=== PATIENT | female | born 1965 | race Caucasian/White ===

== ENCOUNTER → 2016-08-08 | Outpatient (CLI) | payer OTHER ==
[~2016-08-08] MED LIST: BUPR-79 PO; CGN5X PO; CHLO1TAB19 PO; DIPH50CA31 PO; DTRSR/10 PO; HYDR25TA4 PO; MELO15TA4 PO; OXCA300T PO; PRLSR20 PO; TOPI100T45 PO; ZCR40 PO
== END | disposition home or self-care (01) ==
LOC: C.PATHSPEC 17:49
PROVIDERS: ATTEND Nurse Practitioner
DX: L82.1 Other seborrheic keratosis (principal)

== ENCOUNTER → 2016-09-27 | Outpatient (CLI) | payer OTHER ==
[2016-09-27 12:13] LABS: BASO % 0.5 %; BASO ABS # 0.03 K/uL (0-0.2); COMPLETE YES; EOS % 1.1 %; HEMATOCRIT 39.5 % (37-47); IG% 0.2 %; LYMPH % 36.1 %; LYMPH ABS # 1.97 K/uL (1.2-3.4); MEAN CELL VOLUME 86.8 fL (80-100); MEAN CORPUSCULAR HEMOGLOBIN 29.7 pg (25-34); MEAN CORPUSCULAR HGB CONC 34.2 g/dl (32-36); MEAN PLATELET VOLUME 10.1 fL (7.4-10.4); MONO % 7.3 %; NEUT % 54.8 %; PLATELET COUNT 265 K/uL (130-400); RED BLOOD COUNT 4.55 M/uL (4.2-5.4); WHITE BLOOD COUNT 5.46 K/uL (4.8-10.8)
[2016-09-27 12:22] LABS: ALT/SGPT 24 U/L (12-78); BLOOD UREA NITROGEN 17 mg/dl (7-18); BUN/CREATININE RATIO 22.4 (10-20); CALCIUM 9.1 mg/dl (8.5-10.1); CARBON DIOXIDE 24 mmol/L (21-32); CHLORIDE 109 mmol/L (98-107); CHOLESTEROL 179 mg/dl (0-200); CREATININE 0.75 mg/dl (0.60-1.20); GLUCOSE 93 mg/dl (70-99); POTASSIUM 3.6 mmol/L (3.5-5.1); SODIUM 144 mmol/L (136-145)
[2016-09-27 12:33] LABS: ALB/GLOB RATIO 1.1 (0.9-2); ALKALINE PHOSPHATASE 97 U/L (45-117); AST/SGOT 16 U/L (15-37); HDL CHOLESTEROL 45 mg/dl; LDL CHOLESTEROL CALCULATED 84 mg/dl; TRIGLYCERIDES 248 mg/dl (0-150); VERY LOW DENSITY LIPOPROT CALC 50 mg/dl
[2016-09-27 13:22] LABS: ESTIMATED AVERAGE GLUCOSE 108 mg/dl; HA1C FLAG Normal (Normal)
== END | disposition home or self-care (01) ==
LOC: C.LABBFT 10:27
PROVIDERS: ATTEND Psychiatry & Neurology Geriatric Psychiatry
DX: E53.8 Deficiency of other specified B group vitamins (principal); E07.9 Disorder of thyroid, unspecified; E55.9 Vitamin D deficiency, unspecified; E78.00 Pure hypercholesterolemia, unspecified; R73.01 Impaired fasting glucose; Z79.899 Other long term (current) drug therapy

== ENCOUNTER → 2016-12-11 | Outpatient (CLI) | payer OTHER ==
[~2016-12-11] MED LIST changes: +BENZ0.5T2 PO; -CGN5X PO
--- NOTE | 2016-12-11 16:01 | DIAGNOSTIC IMAGING REPORT ---
PA CHEST RADIOGRAPH AND UPRIGHT AND SUPINE AP RADIOGRAPHS OF THE ABDOMEN CLINICAL HISTORY: Constipation. Abdominal cramping. COMPARISON STUDY: No previous studies for comparison. FINDINGS: Lung volumes are normal. A calcified left lower lobe nodule is noted. Cardiac size is normal. Mediastinal contours are normal. There is no evidence of pulmonary edema. There is no free air. There are suspected bilateral renal calculi. A left renal calculus measures 1 cm. Pelvic calcifications are indeterminate. Bowel gas pattern is normal. There is a [id number] amount of stool within the colon. There is minimal stool within the rectum. IMPRESSION: 1. No free air or evidence of bowel obstruction. 2. Mild to moderate amount of stool within the colon. 3. Suspected bilateral nephrolithiasis. Multiple indeterminate pelvic calcifications statistically reflect phleboliths although distal ureteral calculi could appear similar. 4. No acute cardiopulmonary findings. Electronically signed by: Silvestre Latham M.D. 12/11/2016 4:00 PM Dictated Date/Time: 12/11/2016 3:56 PM
== END | disposition home or self-care (01) ==
LOC: C.RAD1850 15:22
PROVIDERS: ATTEND Nurse Practitioner
DX: R10.31 Right lower quadrant pain (principal); R10.32 Left lower quadrant pain; N28.89 Other specified disorders of kidney and ureter

== ENCOUNTER → 2016-12-11 | Outpatient (CLI) | payer OTHER ==
[2016-12-11 17:39] LABS: BASO % 0.2 %; BASO ABS # 0.01 K/uL (0-0.2); COMPLETE YES; EOS % 1.6 %; HEMATOCRIT 39.5 % (37-47); IG% 0.3 %; LYMPH % 32.8 %; LYMPH ABS # 2.02 K/uL (1.2-3.4); MEAN CELL VOLUME 86.8 fL (80-100); MEAN CORPUSCULAR HEMOGLOBIN 29.9 pg (25-34); MEAN CORPUSCULAR HGB CONC 34.4 g/dl (32-36); MEAN PLATELET VOLUME 9.9 fL (7.4-10.4); NEUT % 57.1 %; PLATELET COUNT 271 K/uL (130-400); RED BLOOD COUNT 4.55 M/uL (4.2-5.4); WHITE BLOOD COUNT 6.16 K/uL (4.8-10.8)
[2016-12-11 17:54] LABS: BLOOD UREA NITROGEN 22 mg/dl (7-18); BUN/CREATININE RATIO 28.9 (10-20); CALCIUM 9.1 mg/dl (8.5-10.1); CARBON DIOXIDE 28 mmol/L (21-32); CHLORIDE 109 mmol/L (98-107); CREATININE 0.76 mg/dl (0.60-1.20); GLUCOSE 92 mg/dl (70-99); POTASSIUM 3.1 mmol/L (3.5-5.1); SODIUM 144 mmol/L (136-145)
== END | disposition home or self-care (01) ==
LOC: C.LABBFT 09:47
PROVIDERS: ATTEND Nurse Practitioner
DX: R10.31 Right lower quadrant pain (principal); R10.32 Left lower quadrant pain

== ENCOUNTER → 2016-12-13 | Outpatient (CLI) | payer OTHER ==
--- NOTE | 2016-12-13 10:42 | DIAGNOSTIC IMAGING REPORT ---
ABDOMINAL ULTRASOUND, RIGHT UPPER QUADRANT HISTORY: Abdominal cramping. Right upper quadrant pain.. COMPARISON: None. FINDINGS: Pancreas: The pancreas demonstrates a normal echotexture. Liver: The liver is echogenic consistent with fatty change. Gallbladder: No gallbladder wall thickening. No gallstones. CBD: 6 mm. Right kidney: There appears to be a right extra renal pelvis. There are few small stones measuring up to 5 mm. No definite hydronephrosis. IMPRESSION: 1. Hepatic steatosis. 2. Normal gallbladder, no gallstones. 3. Right-sided nephrolithiasis. No definite hydronephrosis Electronically signed by: Los Pathak M.D. 12/13/2016 10:41 AM Dictated Date/Time: 12/13/2016 10:39 AM
== END | disposition home or self-care (01) ==
LOC: C.ULTR 09:57
PROVIDERS: ATTEND Nurse Practitioner
DX: R10.31 Right lower quadrant pain (principal); R10.32 Left lower quadrant pain; K76.0 Fatty (change of) liver, not elsewhere classified; N20.0 Calculus of kidney

== ENCOUNTER → 2016-12-18 | Outpatient (CLI) | payer OTHER ==
--- NOTE | 2016-12-18 10:30 | DIAGNOSTIC IMAGING REPORT ---
ABDOMEN AND PELVIS CT WITHOUT CONTRAST CT DOSE: 557.63 mGy.cm HISTORY: N20.0 Kidney [id number] TECHNIQUE: Multiaxial CT images of the abdomen and pelvis were performed without contrast. COMPARISON STUDY: Abdominal ultrasound 12/13/2016. FINDINGS: There are few punctate calcified granulomas within the lung bases. No pneumoperitoneum. No pneumatosis. A 6 mm nodule within the right inferior breast on image 3. The unenhanced liver, gallbladder, pancreas, and adrenal glands are unremarkable. The 11 mm hypodense lesion within the upper pole of the left kidney is incompletely characterized on this noncontrast study. Multiple bilateral renal calculi. Dominant stone within the upper pole of the left kidney measures 7 mm. There is a right extrarenal pelvis. There is a punctate stone within the left ureterovesical junction best seen on image 368. This measures 1 mm. There is mild fullness within the left renal collecting system without lana hydronephrosis. No retroperitoneal lymphadenopathy. The bladder, uterus, bilateral adnexa are unremarkable. Colonic diverticulosis. No bowel wall thickening or obstruction. Normal appendix. IMPRESSION: 1. A 1 mm stone within the left ureterovesical junction. There is mild fullness within the left renal collecting system without lana hydronephrosis. 2. Bilateral nephrolithiasis. 3. Colonic diverticulosis. 4. A 6 mm nodule within the right breast has been documented on previous mammograms. Electronically signed by: Los Pathak M.D. 12/18/2016 10:28 AM Dictated Date/Time: 12/18/2016 10:11 AM
== END | disposition home or self-care (01) ==
LOC: C.CTS 09:44
PROVIDERS: ATTEND Nurse Practitioner
DX: N20.2 Calculus of kidney with calculus of ureter (principal); K57.30 Diverticulosis of large intestine without perforation or abscess without bleeding

== ENCOUNTER → 2017-01-10 | Outpatient (CLI) | payer OTHER ==
--- NOTE | 2017-01-10 15:01 | DIAGNOSTIC IMAGING REPORT ---
KUB HISTORY: Kidney stones. COMPARISON: Abdomen and pelvis CT 12/18/2016. FINDINGS: The bowel gas pattern is unremarkable. There are no dilated loops of small bowel to suggest an obstruction. There are 2 stones within the right kidney with the largest measuring 7 mm. There is a 9 mm stone within the left kidney. These remain unchanged. Stable calcifications in the deep pelvis. The majority of these represent phleboliths. There is a 2 mm calcification within the left deep pelvis which could represent the distal ureteral stone seen on the recent CT examination. This is unchanged in position. No pneumoperitoneum or pneumatosis. Large amount well-formed stool within the colon IMPRESSION: 1. Stable bilateral nephrolithiasis. 2. Stable calcifications in the deep pelvis. The majority of these represent phleboliths. There is a 2 mm calcification within the left deep pelvis which could represent the distal ureteral stone seen on the recent CT examination. This is unchanged in position. Electronically signed by: Los Pathak M.D. 01/10/2017 3:00 PM Dictated Date/Time: 01/10/2017 2:55 PM
== END | disposition home or self-care (01) ==
LOC: C.RAD 14:39
PROVIDERS: ATTEND Urology
DX: N20.0 Calculus of kidney (principal)

== ENCOUNTER → 2017-01-11 | Day surgery (SDC) | payer OTHER ==
[2017-01-03 10:21] VITALS: Ht 160 cm; Wt 81.8 kg
[2017-01-04 12:22] LABS: BASO % 0.6 %; BASO ABS # 0.03 K/uL (0-0.2); COMPLETE YES; EOS % 1.7 %; HEMATOCRIT 40.1 % (37-47); IG% 0.2 %; LYMPH % 41.8 %; LYMPH ABS # 2.23 K/uL (1.2-3.4); MEAN CELL VOLUME 87.2 fL (80-100); MEAN CORPUSCULAR HEMOGLOBIN 28.7 pg (25-34); MEAN CORPUSCULAR HGB CONC 32.9 g/dl (32-36); MEAN PLATELET VOLUME 9.7 fL (7.4-10.4); MONO % 5.8 %; NEUT % 49.9 %; PLATELET COUNT 267 K/uL (130-400); WHITE BLOOD COUNT 5.33 K/uL (4.8-10.8)
[2017-01-04 12:37] LABS: CALCIUM 9.1 mg/dl (8.5-10.1)
[2017-01-04 12:38] LABS: BUN/CREATININE RATIO 21.2 (10-20); CREATININE 0.77 mg/dl (0.60-1.20); POTASSIUM 3.5 mmol/L (3.5-5.1)
[2017-01-04 15:09] LABS: URINE APPEARANCE CLEAR (CLEAR); URINE BILIRUBIN NEG (NEG); URINE COLOR YELLOW; URINE EPITHELIAL CELL AUTO 20-30 /lpf (0-5); URINE NITRITE NEG (NEG); URINE PH 6.5 (4.5-7.5); URINE SPECIFIC GRAVITY 1.019 (1.000-1.030); UROBILINOGEN NEG (NEG)
[2017-01-04 15:16] LABS: MANUAL MICROSCOPIC REQUIRED? NO; REVIEW REQ? NO
[~2017-01-11] VITALS: Ht 160 cm; Wt 81.8 kg
[~2017-01-11] MED LIST changes: +ACETAMINOPHEN 325 MG TAB PO PRN; +CIPROFLOXACIN 400MG / D5W IV SCH; +DEXAMETHASONE SOD INJ 4 MG/ML VIAL ONE; +FENTANYL CITRATE INJ 50 MCG/1 ML 2 ML VIAL IV PRN; +FENTANYL CITRATE INJ 50 MCG/1 ML 2 ML VIAL ONE; +KETOROLAC TROMETHAMINE 30 MG/ML VIAL ONE; +LACTATED RINGER'S 1000ML 1,000 ML IV PRN; +LACTATED RINGER'S 1000ML 1,000 ML IV SCH; +LIDOCAINE HCL 2% 2 ML VIAL (20MG/ML) ONE; +MIDAZOLAM HCL 1 MG/ML 2ML VIAL ONE; +NURSING VERBAL MED ORDER ONE; +ONDANSETRON INJ 2 MG/ML 2 ML VIAL IV PRN; +ONDANSETRON INJ 2 MG/ML 2 ML VIAL ONE; +OXYCODONE/ACETAMINOPHEN 5-325 TAB PO PRN; +PROPOFOL IV EMULSION 10 MG/ML 20 ML VIAL IV ONE; +SODIUM CHLORIDE 0.9% 1000ML 1,000 ML IV SCH; +TAMSULOSIN HCL 0.4 MG CAP PO SCH
--- NOTE | 2017-01-11 06:49 | History & Physical Bridge Note ---
H&P Re-Evaluation Bridge Note: I have examined the patient, reviewed the History & Physical and in the interval since the performance of the History & Physical I have noted the following changes of clinical significance: No changes noted
--- NOTE | 2017-01-11 07:34 | [facility] Post Operative Brief Note ---
Immediate Operative Summary Operative Date Jan 11, 2017. Pre-Operative Diagnosis L renal stone Post-Operative Diagnosis L renal stone Procedure(s) Performed L ESWL Surgeon Qamar Palm Manager Engine Surgeon(s) none Estimated Blood Loss 0cc Findings Large left renal stone - appeared to fragment nicely Specimens none Drains none Anesthesia gen Complication(s) None Disposition Recovery Room / PACU (stable)
--- NOTE | 2017-01-11 07:35 | Discharge Instructions ---
Discharge Instructions Date of Service Jan 11, 2017. Admission Reason for Admission: Stones Discharge Discharge Diagnosis / Problem: stones Discharge Goals Goal(s): Decrease discomfort, Improve function, Increase independence, Improve disease control, Prevent Disease Progression Activity Recommendations Activity Limitations: resume your previous activity Lifting Limitations: none Exercise/Sports Limitations: none May Resume Sexual Activity: when tolerated Shower/Bathe: no limitations Driving or Machine Use: resume 1 day after discharge . Instructions / Follow-Up Instructions / Follow-Up Please keep your previously scheduled follow up appointment Discharge Diet Recommended Diet: Regular Diet Procedures Procedures Performed: L ESWL Pending Studies Studies pending at discharge: no Medical Emergencies . Who to Call and When: Medical Emergencies: If at any time you feel your situation is an emergency, please call 911 immediately. . Non-Emergent Contact Non-Emergency issues call your: Urologist Call Non-Emergent contact if: you have a fever, temperature is above 101.5, your pain is not controlled, your pain is worsening . . "Provider Documentation" section prepared by Alan Ruvalcaba. . VTE Core Measure Inpt VTE Proph given/why not?: Treatment not indicated
[2017-01-11 08:16] VITALS: TEMP 36.6
--- NOTE | 2017-01-11 08:26 | Anesthesia Progress Nt - [facility] ---
Anesthesia Post Op Note Date & Time Jan 11, 2017 at 08:23 Vital Signs Pain Intensity: 0 Vital Signs Past 12 Hours Date Time Temp Pulse Resp B/P (MAP) Pulse Ox O2 Delivery O2 Flow Rate FiO2 01/11/17 08:16 136/77 01/11/17 08:13 71 13 96 01/11/17 08:13 70 13 01/11/17 08:11 133/90 01/11/17 08:08 70 13 97 01/11/17 08:08 71 13 01/11/17 08:08 37.0 70 12 130/82 97 Room Air 01/11/17 08:07 70 21 95 01/11/17 08:07 71 21 01/11/17 08:05 130/82 01/11/17 08:02 69 18 99 01/11/17 08:02 69 18 01/11/17 08:00 118/86 01/11/17 07:57 73 17 01/11/17 07:57 74 17 99 01/11/17 07:56 125/77 01/11/17 07:55 68 16 01/11/17 07:55 68 16 99 01/11/17 07:51 139/91 01/11/17 07:50 80 22 01/11/17 07:50 80 22 98 01/11/17 07:46 123/62 01/11/17 07:45 79 17 01/11/17 07:45 17 01/11/17 07:40 37.1 80 12 119/76 99 Room Air 01/11/17 07:40 78 16 01/11/17 07:40 79 16 119/76 99 01/11/17 06:27 36.9 84 20 144/83 (103) 98 Room Air Notes Mental Status: alert / awake / arousable, participated in evaluation Pt Amnestic to Procedure: Yes Nausea / Vomiting: adequately controlled Pain: adequately controlled Airway Patency, RR, SpO2: stable & adequate BP & HR: stable & adequate Hydration State: stable & adequate Anesthetic Complications: no major complications apparent Pt doing well.
[2017-01-11 08:54] VITALS: BP 153/90; PULSE 73; O2SAT 96
--- NOTE | 2017-01-11 13:23 | OPERATIVE REPORT ---
DATE OF OPERATION: 01/11/2017 PREOPERATIVE DIAGNOSIS: Left renal calculus. POSTOPERATIVE DIAGNOSIS: Left renal calculus. PROCEDURE PERFORMED: Left extracorporeal shockwave lithotripsy. ANESTHESIA: General. ESTIMATED BLOOD LOSS: Zero. URINE OUTPUT: Not recorded. SPECIMENS: There are no specimens. DRAINS: There are no drains. DESCRIPTION OF THE PROCEDURE: Gabi Goodman was identified in the preoperative holding area. Appropriate informed consents were reviewed and completed and the patient was transported to the operating suite. She received appropriate general anesthesia as well as ciprofloxacin. She was placed in supine position and her stone in the left kidney was localized under fluoroscopy. Lithotripsy was commenced. Details of this procedure can be found on the [place] Kidney Stone Management Information Sheet; however in summary, she tolerated the procedure extremely well and had good fragmentation of the left renal stone. A total of 2500 shocks were delivered before concluding the case. She subsequently was extubated and taken to the PACU in stable condition. I attest to the content of the Intraoperative Record and any orders documented therein. Any exception s are noted below.
== END | disposition home or self-care (01) ==
LOC: X.SURG 06:03
PROVIDERS: ATTEND Urology
DX: N20.0 Calculus of kidney (principal); R39.15 Urgency of urination; K21.9 Gastro-esophageal reflux disease without esophagitis; E78.00 Pure hypercholesterolemia, unspecified; I10 Essential (primary) hypertension; F33.9 Major depressive disorder, recurrent, unspecified; E66.9 Obesity, unspecified; E07.9 Disorder of thyroid, unspecified; E53.8 Deficiency of other specified B group vitamins; E55.9 Vitamin D deficiency, unspecified; E78.5 Hyperlipidemia, unspecified; Z83.3 Family history of diabetes mellitus; Z82.49 Family history of ischemic heart disease and other diseases of the circulatory system; Z79.899 Other long term (current) drug therapy

== ENCOUNTER → 2017-01-21 | Outpatient (CLI) | payer OTHER ==
[~2017-01-21] MED LIST changes: -ACETAMINOPHEN 325 MG TAB PO PRN; -BENZ0.5T2 PO; +CGN5X PO; -CIPROFLOXACIN 400MG / D5W IV SCH; -DEXAMETHASONE SOD INJ 4 MG/ML VIAL ONE; -FENTANYL CITRATE INJ 50 MCG/1 ML 2 ML VIAL IV PRN; -FENTANYL CITRATE INJ 50 MCG/1 ML 2 ML VIAL ONE; -KETOROLAC TROMETHAMINE 30 MG/ML VIAL ONE; -LACTATED RINGER'S 1000ML 1,000 ML IV PRN; -LACTATED RINGER'S 1000ML 1,000 ML IV SCH; -LIDOCAINE HCL 2% 2 ML VIAL (20MG/ML) ONE; -MIDAZOLAM HCL 1 MG/ML 2ML VIAL ONE; -NURSING VERBAL MED ORDER ONE; -ONDANSETRON INJ 2 MG/ML 2 ML VIAL IV PRN; -ONDANSETRON INJ 2 MG/ML 2 ML VIAL ONE; -OXYCODONE/ACETAMINOPHEN 5-325 TAB PO PRN; -PROPOFOL IV EMULSION 10 MG/ML 20 ML VIAL IV ONE; -SODIUM CHLORIDE 0.9% 1000ML 1,000 ML IV SCH; -TAMSULOSIN HCL 0.4 MG CAP PO SCH
--- NOTE | 2017-01-21 08:50 | DIAGNOSTIC IMAGING REPORT ---
KUB CLINICAL HISTORY: N20.0 Kidney [id number] nephrocalcinosis COMPARISON STUDY: 01/10/2017 FINDINGS: Bilateral nephrocalcinosis essentially unchanged from the prior exam. No change in size or number of renal calcifications compared to the prior study. Graph faint calcification medial aspect left soft tissue pelvis potentially relating to the left ureter is unchanged. Pelvic vascular calcifications are stable. IMPRESSION: Unchanged exam compared to prior. Stable bilateral nephrocalcinosis. Probable unchanged position of a distal left ureteral calculus. Electronically signed by: Dragan Parkinson M.D. 01/21/2017 8:48 AM Dictated Date/Time: 01/21/2017 8:47 AM
== END | disposition home or self-care (01) ==
LOC: C.RAD 08:24
PROVIDERS: ATTEND Urology
DX: E83.59 Other disorders of calcium metabolism (principal); N29 Other disorders of kidney and ureter in diseases classified elsewhere

== ENCOUNTER → 2017-01-23 | Outpatient (CLI) | payer OTHER | END | disposition home or self-care (01) | LOC: C.LABSPEC 17:11 | PROVIDERS: ATTEND Urology | DX: N20.0 Calculus of kidney (principal) ==

== ENCOUNTER → 2017-02-01 | Day surgery (SDC) | payer OTHER ==
[2017-01-25 10:35] VITALS: Ht 160 cm; Wt 81.8 kg
--- NOTE | 2017-01-31 10:44 | DIAGNOSTIC IMAGING REPORT ---
KUB CLINICAL HISTORY: STONES nephrocalcinosis COMPARISON STUDY: 01/21/2017 FINDINGS: Stable bilateral nephrocalcinosis. Poor visibility kidneys in general on the current study due to overlying bowel content. Probable stable distal left ureteral calculus. Several pelvic vascular calcifications stable. IMPRESSION: 1. Stable bilateral nephrocalcinosis within limitations of overlying bowel content. 2. Probable distal left ureteral calculus at the ureterovesical junction unchanged Electronically signed by: Dragan Parkinson M.D. 01/31/2017 10:43 AM Dictated Date/Time: 01/31/2017 10:42 AM
[~2017-02-01] VITALS: Ht 160 cm; Wt 81.8 kg
[~2017-02-01] MED LIST changes: +ATROPINE SULFATE 0.1 MG/ML 5ML SYR IV PRN; +CIPROFLOXACIN 400MG / D5W IV SCH; +DEXAMETHASONE SOD INJ 4 MG/ML VIAL ONE; +EpHEDrine SULFATE INJ 50 MG/ML AMP IV PRN; +FENTANYL CITRATE INJ 50 MCG/1 ML 2 ML VIAL IV PRN; +FENTANYL CITRATE INJ 50 MCG/1 ML 2 ML VIAL ONE; +LACTATED RINGER'S 1000ML 1,000 ML IV SCH; +LIDOCAINE HCL 2% 2 ML VIAL (20MG/ML) ONE; +MIDAZOLAM HCL 1 MG/ML 2ML VIAL ONE; +ONDANSETRON INJ 2 MG/ML 2 ML VIAL IV PRN; +ONDANSETRON INJ 2 MG/ML 2 ML VIAL ONE; +OXYCODONE/ACETAMINOPHEN 5-325 TAB PO PRN; +PROMETHAZINE HCL INJ 6.25 MG in SODIUM CHLORIDE 0.9% 50ML 50 ML IV PRN; +PROPOFOL IV EMULSION 10 MG/ML 20 ML VIAL IV ONE
--- NOTE | 2017-02-01 08:15 | Discharge Instructions ---
Discharge Instructions Date of Service Feb 01, 2017. Admission Reason for Admission: Stones Discharge Discharge Diagnosis / Problem: R renal stones s/p ESWL Discharge Goals Goal(s): Decrease discomfort, Improve function, Improve disease control, Therapeutic intervention Activity Recommendations Activity Limitations: as noted below Lifting Limitations: no more than 25 pounds, gradually increase as tolerated ( x 3 days) Exercise/Sports Limitations: rest today, gradually increase as tolerated (x 3 days) May Resume Sexual Activity: when tolerated Shower/Bathe: no limitations Driving or Machine Use: resume 1 day after discharge . Instructions / Follow-Up Instructions / Follow-Up Strain urine for stone fragments Follow up in office as scheduled with [facility] Xray beforehand Has pain meds at home, no new Rx Discharge Diet Recommended Diet: Regular Diet (good fluid intake) Procedures Procedures Performed: Right Extracorporeal Shock Wave Lithotripsy Pending Studies Studies pending at discharge: no Medical Emergencies . Who to Call and When: Medical Emergencies: If at any time you feel your situation is an emergency, please call 911 immediately. . Non-Emergent Contact Non-Emergency issues call your: Urologist Call Non-Emergent contact if: you have a fever, temperature is above 101, your pain is not controlled, your pain is worsening, your pain is unusual for you, your pain is concerning you, you have any medication questions . . "Provider Documentation" section prepared by Koko Worthington. . VTE Core Measure Inpt VTE Proph given/why not?: SCD's
--- NOTE | 2017-02-01 08:23 | [facility] Operative Report ---
Operative Report Operative Date Feb 01, 2017. Pre-Operative Diagnosis Right Renal Stone Post-Operative Diagnosis Same Procedure(s) Performed Right Extracorporeal Shock Wave Lithotripsy Surgeon Dr Nelson Worthington Card Puncher Surgeon(s) None Estimated Blood Loss 0ml Findings Good stone fragmentation of upper and lower stones, fair fragmentation of central stone Specimens None Drains NA Anesthesia GALMA Complication(s) None Disposition Recovery Room / PACU Indications R renal stones Description of Procedure The patient was brought to the litho suite. He was correctly identified and the stone was visualized on his most recent x-rays. After the correct time out was performed the patient was positioned over the therapy head. An adequate level of anesthesia was administered. The extracorporeal shockwave lithotripsy treatment was then commenced. Please see the [place] Kid[facility] Stone Management sheet for complete treatment summary. After completion of the procedure the patient was taken to the recovery room in stable condition. I attest to the content of the Intraoperative Record and any orders documented therein. Any exceptions are noted below. I attest to the content of the Intraoperative Record and any orders documented therein. Any exceptions are noted below.
[2017-02-01 09:15] VITALS: TEMP 36.3
--- NOTE | 2017-02-01 09:24 | Anesthesiology Progress Note ---
Anesthesia Post Op Note Date & Time Feb 01, 2017 at 09:24 Vital Signs Pain Intensity: 0 Vital Signs Past 12 Hours Date Time Temp Pulse Resp B/P (MAP) Pulse Ox O2 Delivery O2 Flow Rate FiO2 02/01/17 08:57 66 7 02/01/17 08:57 66 7 97 02/01/17 08:56 137/96 02/01/17 08:55 66 13 02/01/17 08:55 65 13 97 02/01/17 08:54 68 14 02/01/17 08:54 68 14 97 02/01/17 08:54 36.6 97 Room Air 02/01/17 08:51 142/92 02/01/17 08:49 67 13 02/01/17 08:49 66 13 96 02/01/17 08:48 67 20 127/89 98 02/01/17 08:48 67 20 127/89 98 02/01/17 08:48 69 20 02/01/17 08:48 69 20 02/01/17 08:46 140/112 02/01/17 08:46 140/112 02/01/17 08:43 65 13 100 02/01/17 08:43 67 13 02/01/17 08:43 67 13 02/01/17 08:43 65 13 100 02/01/17 08:41 146/103 02/01/17 08:41 146/103 02/01/17 08:38 68 13 02/01/17 08:38 67 13 97 02/01/17 08:38 67 13 97 02/01/17 08:38 68 13 02/01/17 08:36 133/98 02/01/17 08:36 133/98 02/01/17 08:35 144/84 02/01/17 08:35 144/84 02/01/17 08:33 80 15 02/01/17 08:33 79 15 98 02/01/17 08:33 79 15 98 02/01/17 08:33 80 15 02/01/17 08:31 125/114 02/01/17 08:31 125/114 02/01/17 08:30 36.6 76 20 129/98 100 Mask 6 02/01/17 08:29 129/98 02/01/17 08:29 129/98 02/01/17 06:28 36.9 91 22 154/95 (114) 97 Room Air Notes Mental Status: alert / awake / arousable, participated in evaluation Pt Amnestic to Procedure: Yes Nausea / Vomiting: adequately controlled Pain: adequately controlled Airway Patency, RR, SpO2: stable & adequate BP & HR: stable & adequate Hydration State: stable & adequate Anesthetic Complications: no major complications apparent
[2017-02-01 09:41] VITALS: BP 140/73; PULSE 79; O2SAT 99
== END | disposition home or self-care (01) ==
LOC: X.SURG 06:14
PROVIDERS: ATTEND Urology
DX: N20.0 Calculus of kidney (principal); F09 Unspecified mental disorder due to known physiological condition; K21.9 Gastro-esophageal reflux disease without esophagitis; G60.0 Hereditary motor and sensory neuropathy; I10 Essential (primary) hypertension; E78.00 Pure hypercholesterolemia, unspecified; E87.6 Hypokalemia; F33.9 Major depressive disorder, recurrent, unspecified; E66.9 Obesity, unspecified; G62.9 Polyneuropathy, unspecified; E07.9 Disorder of thyroid, unspecified; E53.8 Deficiency of other specified B group vitamins; E55.9 Vitamin D deficiency, unspecified; Z79.899 Other long term (current) drug therapy

== ENCOUNTER → 2017-02-12 | Outpatient (CLI) | payer OTHER ==
[~2017-02-12] MED LIST changes: -ATROPINE SULFATE 0.1 MG/ML 5ML SYR IV PRN; -CIPROFLOXACIN 400MG / D5W IV SCH; -DEXAMETHASONE SOD INJ 4 MG/ML VIAL ONE; -EpHEDrine SULFATE INJ 50 MG/ML AMP IV PRN; -FENTANYL CITRATE INJ 50 MCG/1 ML 2 ML VIAL IV PRN; -FENTANYL CITRATE INJ 50 MCG/1 ML 2 ML VIAL ONE; -LACTATED RINGER'S 1000ML 1,000 ML IV SCH; -LIDOCAINE HCL 2% 2 ML VIAL (20MG/ML) ONE; -MIDAZOLAM HCL 1 MG/ML 2ML VIAL ONE; -ONDANSETRON INJ 2 MG/ML 2 ML VIAL IV PRN; -ONDANSETRON INJ 2 MG/ML 2 ML VIAL ONE; -OXYCODONE/ACETAMINOPHEN 5-325 TAB PO PRN; -PROMETHAZINE HCL INJ 6.25 MG in SODIUM CHLORIDE 0.9% 50ML 50 ML IV PRN; -PROPOFOL IV EMULSION 10 MG/ML 20 ML VIAL IV ONE
--- NOTE | 2017-02-12 08:47 | DIAGNOSTIC IMAGING REPORT ---
KUB HISTORY: 51 years-old Female N20.0 acute right-sided flank pain with history of kidney stones. COMPARISON: [facility] radiographs 01/31/2017 TECHNIQUE: Single abdominal radiograph. FINDINGS: The previously questioned calculus within the region of the distal left ureterovesicular junction is not identified on today's study. Multiple phleboliths within the pelvis are again seen. Bilateral nephrolithiasis redemonstrated with stones measuring up to 4 mm on the right and 4 mm on the left. No definite calculi are seen along the course of either ureter. There is however moderate volume of formed stool within the colon which partially discovers the renal shadows. Bowel gas pattern is nonobstructive. There is no gross pneumoperitoneum. No fracture. IMPRESSION: 1. Bilateral nephrolithiasis redemonstrated. 2. Previously questioned calculus within the region of the distal left ureter is not identified on today's study, however there is a moderate amount of overlying formed stool present. 3. Nonobstructive bowel gas pattern. The above report was generated using voice recognition software. It may contain grammatical, syntax or spelling errors. Electronically signed by: Winston Arellano M.D. 02/12/2017 8:45 AM Dictated Date/Time: 02/12/2017 8:43 AM
== END | disposition home or self-care (01) ==
LOC: C.RAD 08:17
PROVIDERS: ATTEND Urology
DX: N20.0 Calculus of kidney (principal); R10.9 Unspecified abdominal pain

== ENCOUNTER → 2017-04-01 | Outpatient (CLI) | payer OTHER ==
[2017-04-01 12:52] LABS: URINE APPEARANCE CLEAR (CLEAR); URINE BILIRUBIN NEG (NEG); URINE COLOR YELLOW; URINE NITRITE NEG (NEG); URINE SPECIFIC GRAVITY 1.021 (1.000-1.030); UROBILINOGEN NEG (NEG)
[2017-04-01 12:53] LABS: MANUAL MICROSCOPIC REQUIRED? NO; REVIEW REQ? NO
== END | disposition home or self-care (01) ==
LOC: C.LABBFT 09:04
PROVIDERS: ATTEND Nurse Practitioner
DX: R30.0 Dysuria (principal)

== ENCOUNTER → 2017-07-05 | Outpatient (CLI) | payer OTHER ==
[~2017-07-05] MED LIST changes: +BENZ0.5T2 PO; -CGN5X PO
--- NOTE | 2017-07-08 07:58 | MAMMOGRAPHY REPORT ---
BILATERAL DIGITAL SCREENING MAMMOGRAM TOMOSYNTHESIS WITH CAD: 07/05/2017 CLINICAL HISTORY: Routine screening. Patient has no complaints. TECHNIQUE: Breast tomosynthesis in addition to standard 2D mammography was performed. Current study was also evaluated with a Computer Aided Detection (CAD) system. COMPARISON: Comparison is made to exams dated: 06/21/2016 ultrasound, 06/21/2016 mammogram, 12/20/2015 mammogram, 06/02/2015 mammogram, 05/14/2014 mammogram, and 05/11/2013 mammogram - [facility]. BREAST COMPOSITION: The tissue of both breasts is heterogeneously dense, which may obscure small mas ses. FINDINGS: No suspicious masses, calcifications, or areas of architectural distortion are noted in ei ther breast. There has been no significant interval change compared to prior exams. IMPRESSION: ACR BI-RADS CATEGORY 1: NEGATIVE There is no mammographic evidence of malignancy. A 1 year screening mammogram is recommended. The pa tient will receive written notification of the results. Approximately 10% of breast cancers are not detected with mammography. A negative mammographic report should not delay biopsy if a clinically suggestive mass is present. Sue Boo M.D. ah/:07/05/2017 16:40:12 [employer]inder: [employer] CANO(Samina)(M), [facility] letter sent: Normal 1/2 BI-RADS Code: ACR BI-RADS Category 1: Negative
== END | disposition home or self-care (01) ==
LOC: C.MAMM 10:32
PROVIDERS: ATTEND Nurse Practitioner
DX: Z12.31 Encounter for screening mammogram for malignant neoplasm of breast (principal)

== ENCOUNTER → 2017-10-02 | Outpatient (CLI) | payer OTHER ==
[~2017-10-02] MED LIST changes: +MELO-83 PO; -MELO15TA4 PO
[2017-10-02 17:55] LABS: BLOOD UREA NITROGEN 21 mg/dl (7-18); CREATININE 0.75 mg/dl (0.60-1.20); GLUCOSE 86 mg/dl (70-99)
[2017-10-02 17:56] LABS: ALBUMIN 3.9 gm/dl (3.4-5.0); ALT/SGPT 29 U/L (12-78); CALCIUM 9.1 mg/dl (8.5-10.1); CARBON DIOXIDE 26 mmol/L (21-32); CHOLESTEROL 211 mg/dl (0-200); POTASSIUM 3.4 mmol/L (3.5-5.1); SODIUM 140 mmol/L (136-145)
[2017-10-02 18:06] LABS: ALKALINE PHOSPHATASE 95 U/L (45-117); AST/SGOT 20 U/L (15-37); LDL CHOLESTEROL CALCULATED 104 mg/dl; TOTAL PROTEIN 7.6 gm/dl (6.4-8.2)
[2017-10-03 06:57] LABS: HEMOGLOBIN A1C 5.4 % (4.5-5.6)
== END | disposition home or self-care (01) ==
LOC: C.LABBFT 11:10
PROVIDERS: ATTEND Nurse Practitioner
DX: E78.00 Pure hypercholesterolemia, unspecified (principal); R73.01 Impaired fasting glucose; E07.9 Disorder of thyroid, unspecified; E55.9 Vitamin D deficiency, unspecified

== ENCOUNTER → 2017-10-09 | Outpatient (CLI) | payer OTHER ==
--- NOTE | 2017-10-09 12:31 | DIAGNOSTIC IMAGING REPORT ---
KUB CLINICAL HISTORY: N20.0 Kidney [id number] nephrocalcinosis COMPARISON STUDY: 02/12/2017 FINDINGS: The soft tissues, psoas shadows, renal outlines and intestinal gas pattern appear normal. There is no evidence for bowel obstruction. No abnormal abdominal calcifications are seen. Kidneys are obscured by overlying bowel content. Multiple pelvic vascular calcifications unchanged. IMPRESSION: 1. Nondiagnostic study of the kidneys due to overlying bowel content. 2. Nonobstructive bowel pattern. 3. Unchanging bilateral pelvic vascular calcifications. The above report was generated using voice recognition software. It may contain grammatical, syntax or spelling errors. Electronically signed by: Dragan Parkinson M.D. 10/09/2017 12:30 PM Dictated Date/Time: 10/09/2017 12:29 PM
== END | disposition home or self-care (01) ==
LOC: C.RAD1850 12:13
PROVIDERS: ATTEND Urology
DX: N20.0 Calculus of kidney (principal)

== ENCOUNTER → 2017-11-17 | Outpatient (CLI) | payer OTHER | END | disposition home or self-care (01) | LOC: C.RDSM 09:37 | PROVIDERS: ATTEND Family Medicine Sports Medicine | DX: M17.12 Unilateral primary osteoarthritis, left knee (principal); M25.561 Pain in right knee ==